=== PATIENT | female | born 1985 | race Caucasian/White ===

== ENCOUNTER 2017-01-10 12:24 | Emergency (ER) | payer MEDICAID, OTHER ==
[~2017-01-10] VITALS: Ht 162.6 cm; Wt 75.0 kg
[~2017-01-10 12:24] MED LIST: AFRI0.055; AUGM875T PO; IBUP600 PO; OCEA0.653; PSEU30TA PO
[2017-01-10 12:26] VITALS: BP 130/75; PULSE 120; RESP 20; TEMP 98.5; O2SAT 99
[2017-01-10 14:23] LABS: BACTERIA, URINE RARE /hpf; BLOOD, URINE NEG (NEG); GLUCOSE,URINE NEG (NEG); HYALINE CAST, URINE 1 /lpf (RARE); KETONE, URINE NEG (NEG); MUCUS URINE MANY /lpf (OCC); NITRITE,URINE NEG (NEG); SQUAMOUS EPITHELIAL CELL URINE 6 /hpf (0-5); URINE COLOR YELLOW (YELLW/STRAW)
[2017-01-10 15:38] LABS: BETA HCG QUANT 79250 MIU/ML (0-5)
--- NOTE | 2017-01-10 15:54 | RADRPT ---
EXAM DATE/TIME: 01/10/2017 14:16 [place] COMPARISON: No previous studies available for comparison. INDICATIONS : Ectopic. LAB(S): [facility] MEDICAL HISTORY : . Marijuana use. Asthma. SURGICAL HISTORY : None. ENCOUNTER: Initial ACUITY: 3 days PAIN SCORE: 4/10 LOCATION: Bilateral pelvis MEASUREMENTS: UTERUS: 11.9 x 7.1 x 4.9 cm ENDOMETRIAL STRIPE: >20 mm RIGHT OVARY: 3.8 x 2.7 x 2.9 cm LEFT OVARY: 3.1 x 2.7 x 1.8 cm FREE FLUID: No CROWN RUMP LENGTH: 1.0 cm = 7 WKS 1 DAYS FHR: 144 BPM FINDINGS: UTERUS: There is a single early intrauterine present with crown-rump length corresponding to a 7 we ek one day menstrual age. A heart rate of 144 beats per minute was obtained. There is a hypoech oic ill-defined area in the left side of the uterus measuring up to approximately 1.5 x 1.2 cm which demonstrates no color flow. RIGHT OVARY: There is a simple cyst measuring 1.9 x 1.7 x 2.7 cm. LEFT OVARY: Ovary contains no mass or significant cystic lesion. MISCELLANEOUS: No free fluid. CONCLUSION: 1. Early intrauterine corresponding to a 7 weeks one day menstrual age. 2. Possible subchorionic hemorrhage. 3. Simple cyst in right ovary likely representing a corpus luteal cyst. Lazarus Baxter MD on January 10, 2017 at 15:47 Board Certified Radiologist. This report was verified electronically.
[2017-01-10] MEDS ORDERED: MACR100C2 PO (15:59)
--- NOTE | 2017-01-10 15:59 | PD ---
HPI Chief Complaint: Headwaitress Problem/Complaint Time Seen by Provider: 12:44 Travel History International Travel<30 days: No Contact w/Intl Traveler<30days: No Traveled to known affect area: No History of Present Illness HPI The patient is 31 years old and complains of vaginal discharge. She reports crampy intermittent abdominal pain. 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 She's also had spotting. She is 5 para 5. She is not known her last menstruation was. She reports falling and that ER in [place] a month ago. She reports her test that was negative. Severity moderate. No modifying factor. PFSH Past Medical History Asthma: Yes Diminished Hearing: No Influenza Vaccination: No ?: Unknown LMP: 11/18/16 : 4 Para: 2 : 1 Past Surgical History Surgical History: No Previous Surgery Social History Alcohol Use: No Tobacco Use: No Substance Use: Yes ("I smoke weed daily.") Allergies-Medications (Allergen,Severity, Reaction): Coded Allergies: No Known Allergies (Verified , 12/17/13) Reported Meds & Prescriptions Reported Meds & Active Scripts Active Keflex (Cephalexin) 500 Mg Cap 500 Mg PO Q8H 5 Days Motrin 600 Mg Tab (Ibuprofen) 600 Mg Tab 600 Mg PO Q6H PRN Afrin (Oxymetazoline HCl) 0.05 % Spr 1 [place] NA Q12 3 Days [place] Nasal [place] (Saline) 0.65 % Spr 1 [place] NA Q4HR PRN 7 Days Augmentin 875 mg Tab (Amoxicillin & Pot Clavulanate 875 mg Tab) 875 Mg Tab 875 Mg PO BID 7 Days Pseudoephedrine HCl 30 Mg Tab 30 Mg PO Q6H 5 Days Review of Systems Except as stated in HPI: all other systems reviewed are Neg General / Constitutional: No: Fever Physical Exam Narrative GENERAL: 31-year-old female pleasant well-nourished well-developed SKIN: Warm and dry. URINARY: MINIMAL DISCHARGABLE. NO ADNEXAL MASS OR TENDERNESS. HEAD: Atraumatic. Normocephalic. EYES: Pupils equal and round. No scleral icterus. No injection or drainage. ENT: No nasal bleeding or discharge. Mucous membranes pink and moist. NECK: Trachea midline. No JVD. CARDIOVASCULAR: Regular rate and rhythm. RESPIRATORY: No accessory muscle use. Clear to auscultation. Breath sounds equal bilaterally. GASTROINTESTINAL: Abdomen soft, non-tender, nondistended. Hepatic and splenic margins not palpable. MUSCULOSKELETAL: Extremities without clubbing, cyanosis, or edema. No obvious deformities. NEUROLOGICAL: Awake and alert. No obvious cranial nerve deficits. Motor grossly within normal limits. Five out of 5 muscle strength in the arms and legs. Normal speech. PSYCHIATRIC: Appropriate mood and affect; insight and judgment normal. Data Data Last Documented VS Vital Signs Date Time Temp Pulse Resp B/P (MAP) Pulse Ox O2 Delivery O2 Flow Rate FiO2 01/10/17 16:10 01/10/17 12:26 98.5 120 20 99 Room Air Vital signs reviewed heart rate trended down to the 90s Orders Orders Gc And Chlamydia Pcr (01/10/17 13:00) Wet Prep Profile (01/10/17 13:00) Ua Includes Microscopic (01/10/17 13:00) Ed Urine Pregnancytest Poc (01/10/17 13:00) Beta Hcg (Quant/Titer) (01/10/17 14:18) Us Pelvis (Ques Preg/Ectopic) (01/10/17 ) Type And Screen (01/10/17 14:18) Labs Laboratory Tests Test 01/10/17 13:35 01/10/17 14:30 Urine Color YELLOW Urine Turbidity HAZY Urine pH 6.0 Urine Specific [place] 1.022 Urine Protein TRACE mg/dL Urine Glucose (UA) NEG mg/dL Urine Ketones NEG mg/dL Urine Occult Blood NEG Urine Nitrite NEG Urine Bilirubin NEG Urine Urobilinogen LESS THAN 2.0 MG/DL Urine Leukocyte Esterase MOD Urine RBC 1 /hpf Urine WBC 2 /hpf Urine Squamous Epithelial Cells 6 /hpf Urine Bacteria RARE /hpf Urine Hyaline Casts 1 /lpf Urine Mucus MANY /lpf Clue Cells (Wet Prep) NONE SEEN Vaginal Trichomonas (Wet Prep) NONE SEEN Vaginal Yeast (Wet Prep) NONE SEEN Human Chorionic Gonadotropin, Quant 51618 MIU/ML MDM Medical Decision Making Medical Screen Exam Complete: Yes Emergency Medical Condition: Yes Differential Diagnosis Altered mental status/psychosis due to infection/environmental exposure/ metabolic abnormality, polypharmacy, alcohol abuse/intoxication, illicit or prescribed drug abuse, malingering/secondary gain, non-organic psychiatric disease Narrative Course beta 79,250 UA: uti Blood type A+ Last Impressions Pelvis Ultrasound 01/10/17 0000 Signed Impressions: Service Date/Time: Tuesday, January 10, 2017 14:16 - CONCLUSION: 1. Early intrauterine corresponding to a 7 weeks one day menstrual age. 2. Possible subchorionic hemorrhage. 3. Simple cyst in right ovary likely representing a corpus luteal cyst. Lazarus Baxter MD The patient is resting comfortably and feels better, is alert and in no distress. The patients results and examination findings were discussed. The repeat examination is unremarkable and benign. The history, exam, diagnostic testing, and current condition do not suggest any significant pathology to warrant further testing, continued ED treatment, admission, or surgical evaluation at this point. The vital signs have been stable. The patient does not have uncontrollable pain, intractable vomiting, or other significant symptoms. The patient's condition is stable and appropriate for discharge. The patient will pursue further outpatient evaluation with a primary care physician or other designated or consulting physician as indicated in the discharge instructions. The patient expressed understanding and was agreeable with this plan. Diagnosis Primary Impression: IUP (intrauterine ), incidental Additional Impressions: Bacteriuria Vaginal discharge Threatened miscarriage in early Referrals: Joanne Moreno MD 2 days Additional Instructions: You have a choice when it comes to health care, and we are glad that you chose [facility]. Hopefully, we have met your expectations on today's visit. You are welcome to return to [facility] at any time, as we are committed to meeting the health care needs of our community. Med/Other Pt SpecificInfo: Prescription(s) given Scripts Cephalexin (Keflex) 500 Mg Cap 500 MG PO Q8H for Infection for 5 Days, #15 CAP 0 Refills Prov: Sam Welsh MD 01/10/17 Disposition: 01 DISCHARGE HOME Condition: Stable Sam Welsh MD Jan 10, 2017 15:59
[2017-01-10] MEDS ORDERED: CEPH-460 PO (16:13)
[2017-01-11 03:17] LABS: CHLAMYDIA PCR NOT DETECTED (NOT DETECT); NEISSERIA PCR NOT DETECTED (NOT DETECT)
== END 2017-01-10 16:30 | disposition home or self-care (01) ==
LOC: NEPD 12:24
DX: O20.0 Threatened abortion (principal); Z3A.01 Less than 8 weeks gestation of pregnancy
CPT/HCPCS: 76700; 81001; 84702; 84703; 86850; 86900; 86901; 87210; 87491; 87591; 99284

== ENCOUNTER 2017-08-13 14:42 | Emergency (ER) | payer MEDICAID, OTHER ==
[~2017-08-13] VITALS: Ht 162.6 cm; Wt 75.0 kg
[~2017-08-13 14:42] MED LIST changes: +CEPH-460 PO
[2017-08-13 14:46] VITALS: BP 126/83; PULSE 108; RESP 16; TEMP 99; O2SAT 95
--- NOTE | 2017-08-13 15:11 | PD ---
HPI Chief Complaint: ENT Complaint Time Seen by Provider: 14:58 Travel History International Travel<30 days: No Contact w/Intl Traveler<30days: No Traveled to known affect area: No History of Present Illness HPI 32-year-old female presents emergency department with upper respiratory symptoms including severe sore throat, difficulty swallowing, ear pain, and chest congestion. Patient states it just started in the last couple of days and worse this morning when she woke up. She denies nausea, vomiting, or heartburn. She denies urinary symptoms. No diarrhea. No chest pain. She states her throat pain is 9 out of 10. Patient denies significant fever or chills. No productive cough or wheezing. Patient states she takes Prozac, Xanax, and chronic pain meds normally. She has no known drug allergies PFSH Past Medical History Asthma: Yes Diminished Hearing: No ?: Not LMP: 08/13/17 : 4 Para: 2 : 1 Social History Alcohol Use: No Tobacco Use: No Substance Use: Yes ("I smoke weed daily.") Allergies-Medications (Allergen,Severity, Reaction): Coded Allergies: No Known Allergies (Verified , 12/17/13) Reported Meds & Prescriptions Reported Meds & Active Scripts Active Keflex (Cephalexin) 500 Mg Cap 500 Mg PO Q8H 5 Days Motrin 600 Mg Tab (Ibuprofen) 600 Mg Tab 600 Mg PO Q6H PRN Afrin (Oxymetazoline HCl) 0.05 % Spr 1 [place] NA Q12 3 Days [place] Nasal [place] (Saline) 0.65 % Spr 1 [place] NA Q4HR PRN 7 Days Augmentin 875 mg Tab (Amoxicillin & Pot Clavulanate 875 mg Tab) 875 Mg Tab 875 Mg PO BID 7 Days Pseudoephedrine HCl 30 Mg Tab 30 Mg PO Q6H 5 Days Review of Systems Except as stated in HPI: all other systems reviewed are Neg General / Constitutional: No: Fever Eyes: No: Visual changes HENT: Positive: Headaches, Sore Throat, Rhinitis, Rhinorrhea, Congestion, Earache, No: Vertigo, Lightheadedness, Nosebleed, Neck Stiffness, Neck Pain, Masses, Gingival Bleeding, Dental Difficulties, Ear Discharge Cardiovascular: No: Chest Pain or Discomfort Respiratory: No: Cough, Shortness of Breath, Wheezing, Sneezing Gastrointestinal: No: Nausea, Vomiting, Diarrhea, Abdominal Pain Genitourinary: No: Dysuria Musculoskeletal: No: Pain Skin: No Rash Neurologic: No: Weakness Psychiatric: No: Depression Endocrine: No: Polydipsia Hematologic/Lymphatic: No: Easy Bruising Physical Exam Narrative GENERAL: Patient appears in mild to moderate distress. SKIN: Warm and dry. Normal color. Normal turgor. HEAD: Atraumatic. Normocephalic. EYES: Pupils equal and round. No scleral icterus. No injection or drainage. ENT: No nasal bleeding or discharge. Mucous membranes pink and moist. Patient has bilateral erythematous swollen tonsillitis with exudate, consistent with strep. Question early abscess on the right with slight increased swelling. Airway appears patent. Uvula is midline. TMs are normal bilaterally. NECK: Trachea midline. Supple and nontender without significant lymphadenopathy per CARDIOVASCULAR: Regular rate and rhythm. RESPIRATORY: No accessory muscle use. Clear to auscultation. Breath sounds equal bilaterally. GASTROINTESTINAL: Abdomen soft, non-tender, nondistended. Hepatic and splenic margins not palpable. MUSCULOSKELETAL: Extremities without clubbing, cyanosis, or edema. No obvious deformities. NEUROLOGICAL: Awake and alert. No obvious cranial nerve deficits. Motor grossly within normal limits. Five out of 5 muscle strength in the arms and legs. Normal speech. PSYCHIATRIC: Appropriate mood and affect; insight and judgment normal. Data Data Last Documented VS Vital Signs Date Time Temp Pulse Resp B/P (MAP) Pulse Ox O2 Delivery O2 Flow Rate FiO2 08/13/17 14:46 99.0 108 16 126/83 (97) 95 Orders Orders Amoxicil-Clavulanate (Augmentin) (08/13/17 15:15) Prednisone (Deltasone) (08/13/17 15:15) [facility] Medical Decision Making Medical Screen Exam Complete: Yes Emergency Medical Condition: Yes Differential Diagnosis Acute tonsillitis. Pharyngitis. Early tonsillar abscess. Narrative Course Patient is given Augmentin 875 p.o. now. Patient is given prednisone 20 mg p.o. now. Patient continued on Augmentin 875 mg twice daily 10 days. Patient given prednisone 20 mg daily for 5 days. Patient is given Diflucan 150 mg to be taken as needed for yeast infection. Diagnosis Primary Impression: Acute tonsillitis, unspecified Qualified Codes: J03.90 - Acute tonsillitis, unspecified Patient Instructions: General Instructions, Tonsillitis (DC) Additional Instructions: Patient is given Augmentin 875 p.o. now. Patient is given prednisone 20 mg p.o. now. Patient continued on Augmentin 875 mg twice daily 10 days. Patient given prednisone 20 mg daily for 5 days. Patient is given Diflucan 150 mg to be taken as needed for yeast infection. Med/Other Pt SpecificInfo: Prescription(s) given Disposition: 01 DISCHARGE HOME Condition: Stable Shaun Ruelas Aug 13, 2017 15:11
[2017-08-13] MEDS ORDERED: AUGM875T3 PO (15:12)
[2017-08-13] MEDS ORDERED: PRED20 PO (15:12)
[2017-08-13] MEDS ORDERED: predniSONE 20 MG TAB PO ONE (15:15)
[2017-08-13] MEDS ORDERED: AMOXICILLIN/CLAVULANATE K 875 MG TAB PO ONE (15:15)
[2017-08-13] MEDS ORDERED: DIFL150T PO (15:21)
== END 2017-08-13 15:48 | disposition home or self-care (01) ==
LOC: NEPD 14:42
DX: J03.90 Acute tonsillitis, unspecified (principal); F12.90 Cannabis use, unspecified, uncomplicated
CPT/HCPCS: 99283; J7512